=== PATIENT | female | born 1975 | race Caucasian/White ===

== ENCOUNTER 2021-01-09 11:23 | Emergency (ER) | payer OTHER ==
[2021-01-09 12:04] LABS: ALBUMIN 3.8 g/dL (3.4-5.0); BILIRUBIN - TOTAL 0.5 mg/dL (0.2-1.0); BUN/CREAT RATIO (CALC) 21.1 RATIO; CREATININE 0.76 mg/dL (0.51-0.95); GLOBULIN (CALCULATION) 3.7 g/dL; POTASSIUM 3.9 mmol/L (3.5-5.1); TOTAL PROTEIN 7.5 g/dL (6.4-8.2)
[2021-01-09 12:11] LABS: BASOPHIL 0.1 % (0-2); EOSINOPHIL 0.6 % (0-5); HCT 41.7 % (37.0-47.0); HGB 13.5 g/dl (12.5-16.0); LYMPHOCYTE 12.4 % (15-48); MCH 28.8 pg (25.0-31.0); MCHC 32.4 g/dL (32.0-36.0); MCV 88.9 fL (78.0-100.0); MONOCYTE 5.9 % (0-12); MPV 10.9 fL (6.0-9.5); NEUTROPHIL 80.1 % (41-80); NRBC 0; PLT 304 K/uL (150-400); RBC 4.69 M/uL (4.20-5.40); RDW 11.9 % (11.5-14.0); WBC 15.9 K/uL (4.0-10.5)
[2021-01-09 13:28] LABS: LACTIC ACID 0.7 mmol/L (0.4-1.9)
[2021-01-09 13:33] LABS: BILIRUBIN NEGATIVE (NEGATIVE); BLOOD NEGATIVE Ery/uL (NEGATIVE); CLARITY HAZY (CLEAR); COLOR YELLOW (YELLOW); GLUCOSE (U) NORMAL (NORMAL); LEUKOCYTES NEGATIVE Leu/uL (NEGATIVE); NITRITE NEGATIVE (NEGATIVE); PROTEIN NEGATIVE (NEGATIVE); SPECIFIC GRAVITY 1.015 (1.001-1.030); UROBILINOGEN 0.2 mg/dL (0.2-1.0)
[2021-01-09] MEDS ORDERED: METRONIDAZOLE500 MG PO (14:41)
[2021-01-09] MEDS ORDERED: NORCO 5-325 TA1 EACH PO (14:41)
[2021-01-09] MEDS ORDERED: ZOFRAN4 M1 PO (14:41)
[2021-01-09] MEDS ORDERED: CIPRO500 MG PO (14:41)
== END 2021-01-09 14:59 | disposition home or self-care (01) ==
LOC: FER 11:23
PROVIDERS: Internal Medicine; Nurse Practitioner Family
DX: K52.9 Noninfective gastroenteritis and colitis, unspecified (principal); Z90.49 Acquired absence of other specified parts of digestive tract; Z98.890 Other specified postprocedural states; Z88.6 Allergy status to analgesic agent
CPT/HCPCS: 36415; 80053; 81003; 83605; 83690; 84484; 85025; 87040; J1885; J2405; J7030; Q9967